=== PATIENT | female | born 2000 | race Two or more races ===

== ENCOUNTER 2019-02-18 01:41 | Emergency (ER) | payer OTHER ==
[~2019-02-18] VITALS: Ht 167.6 cm; Wt 65.9 kg
[2019-02-18] MEDS ORDERED: DIAZEPAM 5 MG/ML 2 ML SYRINGE IM ONE (02:15)
[2019-02-18] MEDS ORDERED: KETOROLAC TROMETHAMINE 60 MG/2 ML VIAL IM ONE (02:15)
[2019-02-18 03:41] VITALS: BP 116/76
== END 2019-02-18 03:40 | disposition home or self-care (01) ==
LOC: EMS 01:44
DX: S43.084A Other dislocation of right shoulder joint, initial encounter (principal); Z98.890 Other specified postprocedural states; W18.2XXA Fall in (into) shower or empty bathtub, initial encounter; Y93.E1 Activity, personal bathing and showering; Y92.89 Other specified places as the place of occurrence of the external cause; Y99.8 Other external cause status
CPT/HCPCS: 29105; 73030; 96372; 99283; J1885 ×2

== ENCOUNTER 2019-05-08 19:26 | Emergency (ER) | payer OTHER ==
[~2019-05-08] VITALS: Ht 167.6 cm; Wt 65.0 kg
[2019-05-08] MEDS ORDERED: KETOROLAC TROMETHAMINE 30 MG/ML VIAL IVP ONE (20:00)
[2019-05-08] MEDS ORDERED: ETOMIDATE 2 MG/ML 10 ML VIAL IVP ONE ×2 (20:00→20:15)
[2019-05-08] MEDS ORDERED: OXYGEN THERAPY IH SCH (20:00)
[2019-05-08 20:56] VITALS: BP 138/77
== END 2019-05-08 21:01 | disposition home or self-care (01) ==
LOC: EMS 19:27
DX: S43.084A Other dislocation of right shoulder joint, initial encounter (principal); W20.8XXA Other cause of strike by thrown, projected or falling object, initial encounter; Y93.89 Activity, other specified; Y92.89 Other specified places as the place of occurrence of the external cause; Y99.8 Other external cause status
CPT/HCPCS: 23650; 73030; 81025; 96374; 99285; J1885; J3490; 99152; 99153

== ENCOUNTER 2019-07-04 15:13 | Emergency (ER) | payer OTHER ==
[~2019-07-04] VITALS: Ht 170.2 cm; Wt 65.9 kg
[2019-07-04 15:15] VITALS: BP 117/51
== END 2019-07-04 16:59 | disposition home or self-care (01) ==
LOC: EMS 15:15
DX: S43.034A Inferior dislocation of right humerus, initial encounter (principal); X58.XXXA Exposure to other specified factors, initial encounter; Y93.89 Activity, other specified; Y92.89 Other specified places as the place of occurrence of the external cause; Y99.8 Other external cause status
CPT/HCPCS: 23650